=== PATIENT | male | born 1995 | race Caucasian/White ===

== ENCOUNTER 2019-05-12 19:08 | Emergency (ER) | payer OTHER, BC ==
[~2019-05-12] VITALS: Ht 177.8 cm; Wt 104.3 kg
[~2019-05-12 19:08] MED LIST: DAYPRO600 MG PO; MELATONIN3 MG PO; MELATONIN5 M2 PO; NAPROXEN500 MG PO; NORCO 10-325 T1 EACH PO; PROAIR HFA8.5 GM INH; ULTRAM50 MG PO
== END 2019-05-12 19:51 | disposition home or self-care (01) ==
LOC: ED 19:08
DX: S50.11XA Contusion of right forearm, initial encounter (principal); W23.0XXA Caught, crushed, jammed, or pinched between moving objects, initial encounter
CPT/HCPCS: 73090; 99283